=== PATIENT | female | born 1960 | race Caucasian/White ===

== ENCOUNTER 2020-10-05 20:38 | Day surgery (SDCO) | payer OTHER ==
[~2020-10-05 20:38] MED LIST: CO-ENZYME Q101 EACH PO; MEGARED OMEGA-1 EAC5 PO; MVI-1210 ML PO; NORVASC5 MG PO; OS-CAL500 MG PO; PRINIVIL20 MG PO; PROTONIX 40MG T40 MG PO; SINGULAIR10 MG PO; ZOCOR40 M1 PO
[2020-10-05 23:28] LABS: BILIRUBIN NEGATIVE (NEGATIVE); BLOOD 2+ Ery/uL (NEGATIVE); CLARITY CLEAR (CLEAR); COLOR YELLOW (YELLOW); GLUCOSE (U) NORMAL (NORMAL); LEUKOCYTES NEGATIVE Leu/uL (NEGATIVE); NITRITE NEGATIVE (NEGATIVE); PROTEIN NEGATIVE (NEGATIVE); SPECIFIC GRAVITY 1.015 (1.001-1.030)
[2020-10-05 23:38] LABS: URINARY WBC RARE
[2020-10-06 00:04] LABS: CORONAVIRUS 2019 SARS-COV-2 NEGATIVE (NEGATIVE); INFLUENZA A NAA NEGATIVE (NEGATIVE)
[2020-10-06] MEDS ORDERED: VALSARTAN160 MG PO (01:30)
[2020-10-06] MEDS ORDERED: GABAPENTIN300 MG PO (01:37)
[2020-10-06] MEDS ORDERED: ONDANSETRON ODT8 MG PO (01:39)
[2020-10-06] MEDS ORDERED: PHENERGAN25 M1 PO (01:40)
[2020-10-06] MEDS ORDERED: DIAZEPAM5 MG PO (01:42)
[2020-10-06] MEDS ORDERED: PROCHLORPERAZINE5 M1 PO (01:43)
[2020-10-06] MEDS ORDERED: SANCUSO1 EACH TD (01:44)
[2020-10-06] MEDS ORDERED: DEXAMETHASONE4 MG PO (01:45)
[2020-10-06] MEDS ORDERED: FAMOTIDINE20 MG PO (01:46)
[2020-10-06] MEDS ORDERED: NORCO 5/3251 EACH PO (01:47)
[2020-10-06 06:09] LABS: BASOPHIL 0.3 % (0-2); EOSINOPHIL 0 % (0-5); HCT 22.9 % (37.0-47.0); HGB 8.4 g/dl (12.5-16.0); LYMPHOCYTE 2.3 % (15-48); MCH 35.6 pg (25.0-31.0); MCHC 36.7 g/dL (32.0-36.0); MONOCYTE 2.6 % (0-12); NEUTROPHIL 81.1 % (41-80); RBC 2.36 M/uL (4.20-5.40); WBC 6.6 K/uL (4.0-10.5)
[2020-10-06 06:20] LABS: PLT 24 K/uL (150-400)
[2020-10-06 06:21] LABS: NRBC 0
[2020-10-06 06:22] LABS: ALBUMIN 2.1 g/dL (3.4-5.0); BILIRUBIN - TOTAL 1.7 mg/dL (0.2-1.0); BUN/CREAT RATIO (CALC) 47.2 RATIO; CREATININE 0.36 mg/dL (0.51-0.95); GLOBULIN (CALCULATION) 3.1 g/dL; POTASSIUM 3.8 mmol/L (3.5-5.1); TOTAL PROTEIN 5.2 g/dL (6.4-8.2)
--- NOTE | 2020-10-06 15:23 | NUR ---
RECIEVED CALL FROM [facility] TO GET SON LEAVE FROM TO COME HOME TO SEE MOTHER BEFORE HER . [phone] CASE# [id number]
--- NOTE | 2020-10-06 19:35 | NUR ---
PT FAMILY EXPRESSES THAT THEY WOULD LIKE TO GO HOME THAT IS WHERE THE PATIENT WAS GOING TO BE MORE COMFORTABLE AT. SPOKE TO DR CALDERON AND ASKED IF HE WOULD BE ABLE TO SPEAK WITH THEM. DR CALDERON RELAYS MESSAGE THAT FAMILY WANTS TO BECOME COMFORT CARE AND NEW ORDERS WERE GOING TO BE PLACED TO FOLLOW COMFORT CARE MEASURES NERI REVIEWED THE COMFORT CARE MEASURES AND STATES THAT IT WAS OKAY ZACARIAS GALEAS CALLS AND SPEAK TO [facility] TO DETERMINE TIME THAT HOSPICE WOULD BE THERE IN THE MORNING AFTER ZACARIAS GALEAS TELLS FAMILY OF HOSPICE PLANS THEY STATE AGAIN THAT THEY WOULD LIKE TO GO HOME ZACARIAS GALEAS STATES THAT SHE WILL GO AND NOTIFY DR KVNG CALDERON ACKNOWLEDGES AND STATES THAT HE WILL MEET WITH THE FAMILY AGAIN AFTER MEETING WITH THE FAMILY DR CALDERON PLACES ORDERS FOR THE PATIENT TO BE RELEASED TO GO HOME PT ABBY WAS DEACCESED, MANOJ WAS LEFT IN PLACE PER ORDERS DISCHARGE PAPERWORK WAS REVIEWED ALL QUESTIONS WERE ANSWERED. EDUCATED FAMILY TO CALL UP TO FLOOR FOR QUESTIONS OR CONCERNS
== END 2020-10-06 16:20 | disposition hospice, home (50) ==
LOC: FER 20:38 → FMS 21:31
PROVIDERS: Emergency Medicine Emergency Medical Services; Nurse Practitioner; ADMIT Hospitalist
DX: R78.81 Bacteremia (principal); G93.41 Metabolic encephalopathy; C79.32 Secondary malignant neoplasm of cerebral meninges; C53.9 Malignant neoplasm of cervix uteri, unspecified; D69.6 Thrombocytopenia, unspecified; E86.0 Dehydration; I10 Essential (primary) hypertension; K21.9 Gastro-esophageal reflux disease without esophagitis; E78.5 Hyperlipidemia, unspecified; M19.90 Unspecified osteoarthritis, unspecified site; Z93.4 Other artificial openings of gastrointestinal tract status; Z66 Do not resuscitate; Z98.890 Other specified postprocedural states; Z79.899 Other long term (current) drug therapy; Z20.822 Contact with and (suspected) exposure to COVID-19
CPT/HCPCS: 36415; 80053; 81001; 81003; 83690; 85025; 87040; 87088; 87186; 96374; 96375; G0378; J1642; J2270; J2405; J2550; J7030; J7120; J8540; U0002